=== PATIENT | female | born 1945 | race Caucasian/White ===

== ENCOUNTER → 2017-02-09 | Outpatient (CLI) | payer MEDICARE ==
[~2017-02-09] MED LIST: ARAVA 20MG TABL20 MG PO; ASPI325T6 PO; ASPIRIN 32325 MG/TAB PO; ASPIRIN 81M81 MG/TA2 PO; CALCIUM1 CAP PO; DUO-KAPS1 CAP PO; HUMALOG PEN100 U/ML SC; LANTUS100 U/ML SC; LIPITOR20 MG PO; LOTENSIN40 MG PO; OCUVITE1 TA1 PO; SYNTHROID0.05 MG/TA PO; SYNTHROID0.075 MG/T PO; TOPROL XL 25MG25 MG PO
== END ==
LOC: MC.RAD 09:02
DX: Z12.31 Encounter for screening mammogram for malignant neoplasm of breast (principal)

== ENCOUNTER → 2018-01-28 | Outpatient (CLI) | payer MEDICARE | LOC: COL.RAD 13:37 | DX: R94.6 Abnormal results of thyroid function studies (principal); E05.90 Thyrotoxicosis, unspecified without thyrotoxic crisis or storm | CPT/HCPCS: A9516 ==

== ENCOUNTER → 2018-05-31 | Outpatient (CLI) | payer MEDICARE | LOC: COL.RAD 08:13 | DX: M48.061 Spinal stenosis, lumbar region without neurogenic claudication (principal); M47.816 Spondylosis without myelopathy or radiculopathy, lumbar region; Z98.1 Arthrodesis status; Z98.890 Other specified postprocedural states ==

== ENCOUNTER → 2018-08-11 | Outpatient (CLI) | payer MEDICARE | LOC: MHCPAIN 09:21 | DX: G89.29 Other chronic pain (principal); M47.817 Spondylosis without myelopathy or radiculopathy, lumbosacral region; M54.16 Radiculopathy, lumbar region; M53.3 Sacrococcygeal disorders, not elsewhere classified; M96.1 Postlaminectomy syndrome, not elsewhere classified | CPT/HCPCS: G0463 ==

== ENCOUNTER → 2018-08-12 | Outpatient (CLI) | payer MEDICARE | LOC: MHCPAIN 09:05 | DX: M47.817 Spondylosis without myelopathy or radiculopathy, lumbosacral region (principal); M54.16 Radiculopathy, lumbar region; M53.3 Sacrococcygeal disorders, not elsewhere classified | CPT/HCPCS: G0260; J1040; Q9967 ==

== ENCOUNTER → 2018-09-07 | Outpatient (CLI) | payer MEDICARE | LOC: MHCPAIN 09:03 | DX: G89.29 Other chronic pain (principal); M47.817 Spondylosis without myelopathy or radiculopathy, lumbosacral region; M54.16 Radiculopathy, lumbar region; M53.3 Sacrococcygeal disorders, not elsewhere classified; M96.1 Postlaminectomy syndrome, not elsewhere classified | CPT/HCPCS: G0463 ==

== ENCOUNTER 2018-10-12 09:15 | Outpatient (RCR) | payer MEDICARE | END 2018-10-15 17:30 | disposition home or self-care (01) | LOC: WSPT 09:15 | DX: M53.3 Sacrococcygeal disorders, not elsewhere classified (principal); M47.27 Other spondylosis with radiculopathy, lumbosacral region; M96.1 Postlaminectomy syndrome, not elsewhere classified ==

== ENCOUNTER → 2018-12-29 | Outpatient (CLI) | payer MEDICARE | LOC: MHCPAIN 12:17 | DX: G89.29 Other chronic pain (principal); M47.817 Spondylosis without myelopathy or radiculopathy, lumbosacral region; M54.16 Radiculopathy, lumbar region; M53.3 Sacrococcygeal disorders, not elsewhere classified; M96.1 Postlaminectomy syndrome, not elsewhere classified | CPT/HCPCS: G0463 ==

== ENCOUNTER → 2019-01-06 | Outpatient (CLI) | payer MEDICARE | LOC: MHCPAIN 09:17 | DX: M47.817 Spondylosis without myelopathy or radiculopathy, lumbosacral region (principal); M54.16 Radiculopathy, lumbar region | CPT/HCPCS: J1100; Q9967 ==

== ENCOUNTER → 2019-01-19 | Outpatient (CLI) | payer MEDICARE | LOC: MHCPAIN 13:19 | DX: G89.29 Other chronic pain (principal); M47.817 Spondylosis without myelopathy or radiculopathy, lumbosacral region; M54.16 Radiculopathy, lumbar region; M53.3 Sacrococcygeal disorders, not elsewhere classified; M96.1 Postlaminectomy syndrome, not elsewhere classified | CPT/HCPCS: G0463 ==

== ENCOUNTER → 2019-01-24 | Outpatient (CLI) | payer MEDICARE | LOC: MHCPAIN 12:05 | DX: M47.817 Spondylosis without myelopathy or radiculopathy, lumbosacral region (principal); M54.16 Radiculopathy, lumbar region; M53.3 Sacrococcygeal disorders, not elsewhere classified | CPT/HCPCS: J1100; Q9967 ==

== ENCOUNTER → 2019-02-02 | Outpatient (CLI) | payer MEDICARE | LOC: MHCPAIN 09:08 | DX: G89.29 Other chronic pain (principal); M47.817 Spondylosis without myelopathy or radiculopathy, lumbosacral region; M54.16 Radiculopathy, lumbar region; M53.3 Sacrococcygeal disorders, not elsewhere classified; M96.1 Postlaminectomy syndrome, not elsewhere classified | CPT/HCPCS: G0463 ==

== ENCOUNTER → 2019-02-03 | Outpatient (CLI) | payer MEDICARE | LOC: MHCPAIN 09:29 | DX: M47.817 Spondylosis without myelopathy or radiculopathy, lumbosacral region (principal); M54.16 Radiculopathy, lumbar region | CPT/HCPCS: J1100; Q9967 ==

== ENCOUNTER → 2019-02-16 | Outpatient (CLI) | payer MEDICARE | LOC: MHCPAIN 15:05 | DX: G89.29 Other chronic pain (principal); M47.817 Spondylosis without myelopathy or radiculopathy, lumbosacral region; M54.16 Radiculopathy, lumbar region; M53.3 Sacrococcygeal disorders, not elsewhere classified; M96.1 Postlaminectomy syndrome, not elsewhere classified | CPT/HCPCS: G0463 ==

== ENCOUNTER 2019-05-26 06:29 | Day surgery (SDC) | payer MEDICARE ==
[~2019-05-26] VITALS: Ht 154.9 cm; Wt 63.3 kg
[2019-05-26] MEDS ORDERED: ZANAFLEX CAPSULE4 MG PO (06:51)
[2019-05-26] MEDS ORDERED: TAPAZOLE5 MG PO (06:52)
[2019-05-26] MEDS ORDERED: LOTENSIN40 MG PO (06:52)
[2019-05-26] MEDS ORDERED: CARTIA XT180 MG PO (06:55)
[2019-05-26] MEDS ORDERED: NEURONTIN600 MG/TAB PO ×2 (06:56→06:58)
[2019-05-26] MEDS ORDERED: NEURONTIN300 MG/CAP PO (06:56)
[2019-05-26] MEDS ORDERED: ARAVA 20MG TABL20 MG PO (06:58)
[2019-05-26] MEDS ORDERED: LIPITOR20 MG PO (06:59)
[2019-05-26] MEDS ORDERED: HCTZ 25MG TAB25 MG PO (07:00)
[2019-05-26] MEDS ORDERED: NORCO 325 MG-51 TAB PO (07:01)
[2019-05-26 07:08] VITALS: BP 131/60; PULSE 68; TEMP 97.9
[2019-05-26] MEDS ORDERED: PRILOTC PO (07:14)
[2019-05-26] MEDS ORDERED: XALATAN EYE DROPS OU (07:15)
[2019-05-26] MEDS ORDERED: ASPIRIN E.C. 8181 MG PO (07:16)
[2019-05-26] MEDS ORDERED: CENTRUM1 TA1 PO (07:17)
[2019-05-26] MEDS ORDERED: NATURE'S BLE1000 MCG PO (07:18)
[2019-05-26 08:50] VITALS: BP 114/47; PULSE 64; TEMP 96.7
--- NOTE | 2019-05-26 08:50 | NUR ---
Patient arrives to [facility] via cart, accompanied by [facility] RN Marguerite. Patient is drowsy, but oriented. She ambulates with standby assist to the chair in the room. Monitoring is applied - VSS and WNL on room air. Her spouse is brought to the bedside. She denies any pain or nausea. She is cold and her temperature reads 96.7. She is provided several warm blankets. She requests and receives coffee to drink. She refuses food, as they are planning to go to breakfast after discharge. Call light in reach.
[2019-05-26 09:05] VITALS: BP 113/68; PULSE 66; TEMP 96.7
--- NOTE | 2019-05-26 09:05 | NUR ---
Patient is resting comfortably in room. She states that she is feeling much warmer. She denies any pain or nausea.
[2019-05-26 09:20] VITALS: BP 130/67; PULSE 61
--- NOTE | 2019-05-26 09:20 | NUR ---
Patient is resting comfortably in room. Denies pain or nausea. Dr. Fontaine talks with the patient and her spouse. She has met discharge criteria. Discharge instructions discussed, denies any questions, and verbalizes understanding. PIV removed with catheter intact and hemostasis achieved. She is changing to clothing independently.
--- NOTE | 2019-05-26 09:37 | NUR ---
Patient is escorted to the exit via wheelchair by staff. Discharged to home with ride at [id number].
== END 2019-05-26 09:37 | disposition home or self-care (01) ==
LOC: SDCO 06:29
DX: Z12.11 Encounter for screening for malignant neoplasm of colon (principal); M06.9 Rheumatoid arthritis, unspecified; E03.9 Hypothyroidism, unspecified; E78.5 Hyperlipidemia, unspecified; I12.9 Hypertensive chronic kidney disease with stage 1 through stage 4 chronic kidney disease, or unspecified chronic kidney disease; E11.22 Type 2 diabetes mellitus with diabetic chronic kidney disease; N18.3 Chronic kidney disease, stage 3 (moderate); M54.2 Cervicalgia; M79.2 Neuralgia and neuritis, unspecified; M51.06 Intervertebral disc disorders with myelopathy, lumbar region; I48.91 Unspecified atrial fibrillation; M19.90 Unspecified osteoarthritis, unspecified site; Z79.4 Long term (current) use of insulin; Z90.710 Acquired absence of both cervix and uterus; Z90.721 Acquired absence of ovaries, unilateral; Z79.82 Long term (current) use of aspirin
CPT/HCPCS: J2704; J7030

== ENCOUNTER → 2020-12-25 | Outpatient (CLI) | payer MEDICARE ==
[~2020-12-25] MED LIST changes: +ASPIRIN E.C. 8181 MG PO; +CARTIA XT180 MG PO; +CENTRUM1 TA1 PO; +HCTZ 25MG TAB25 MG PO; +NATURE'S BLE1000 MCG PO; +NEURONTIN300 MG/CAP PO; +NEURONTIN600 MG/TAB PO; +NORCO 325 MG-51 TAB PO; +PRILOTC PO; +TAPAZOLE5 MG PO; +XALATAN EYE DROPS OU; +ZANAFLEX CAPSULE4 MG PO
== END ==
LOC: MHCPAIN 14:25
DX: M47.817 Spondylosis without myelopathy or radiculopathy, lumbosacral region (principal); M53.3 Sacrococcygeal disorders, not elsewhere classified; M54.5 Low back pain; M96.1 Postlaminectomy syndrome, not elsewhere classified
CPT/HCPCS: G0463

== ENCOUNTER → 2021-01-03 | Outpatient (CLI) | payer MEDICARE | LOC: MHCPAIN 13:19 | DX: M47.818 Spondylosis without myelopathy or radiculopathy, sacral and sacrococcygeal region (principal); M53.3 Sacrococcygeal disorders, not elsewhere classified | CPT/HCPCS: G0260; J1040; Q9967 ==

== ENCOUNTER → 2021-01-15 | Outpatient (CLI) | payer MEDICARE | LOC: MHCPAIN 10:44 | DX: M53.3 Sacrococcygeal disorders, not elsewhere classified (principal); M47.816 Spondylosis without myelopathy or radiculopathy, lumbar region; M54.5 Low back pain; M96.1 Postlaminectomy syndrome, not elsewhere classified | CPT/HCPCS: G0463 ==

== ENCOUNTER → 2021-04-08 | Outpatient (CLI) | payer MEDICARE | LOC: MHCPAIN 14:21 | DX: M47.817 Spondylosis without myelopathy or radiculopathy, lumbosacral region (principal); M53.3 Sacrococcygeal disorders, not elsewhere classified; M54.16 Radiculopathy, lumbar region; M96.1 Postlaminectomy syndrome, not elsewhere classified | CPT/HCPCS: G0463 ==

== ENCOUNTER → 2021-04-11 | Outpatient (CLI) | payer MEDICARE | LOC: MHCPAIN 11:32 | DX: M47.817 Spondylosis without myelopathy or radiculopathy, lumbosacral region (principal); M53.3 Sacrococcygeal disorders, not elsewhere classified; M54.16 Radiculopathy, lumbar region | CPT/HCPCS: J1100; Q9967 ==

== ENCOUNTER → 2021-05-07 | Outpatient (CLI) | payer MEDICARE | LOC: MHCPAIN 10:26 | DX: M47.817 Spondylosis without myelopathy or radiculopathy, lumbosacral region (principal); M53.3 Sacrococcygeal disorders, not elsewhere classified; M54.16 Radiculopathy, lumbar region; E10.9 Type 1 diabetes mellitus without complications; M96.1 Postlaminectomy syndrome, not elsewhere classified | CPT/HCPCS: G0463 ==

== ENCOUNTER → 2021-05-09 | Outpatient (CLI) | payer MEDICARE | LOC: MHCPAIN 12:18 | DX: M47.817 Spondylosis without myelopathy or radiculopathy, lumbosacral region (principal); M53.3 Sacrococcygeal disorders, not elsewhere classified; M54.16 Radiculopathy, lumbar region | CPT/HCPCS: J1100; Q9967 ==